=== PATIENT | female | born 1985 | race Two or more races ===

== ENCOUNTER 2021-09-04 15:30 | Inpatient (IN) | payer OTHER ==
[~2021-09-04] VITALS: Ht 152.4 cm; Wt 88.9 kg
[2021-09-10] MEDS ORDERED: ST. JOSEPH ASPI81 M2 (07:59)
== END 2021-09-12 17:11 | disposition home or self-care (01) | DRG 807 ==
LOC: LDR 09-09 19:32 → OB/GYN 09-09 19:32
PROVIDERS: ADMIT Obstetrics & Gynecology; ATTEND Obstetrics & Gynecology
PROC: 10E0XZZ Delivery of Products of Conception, External Approach (ICD-10-PCS; principal; 2021-09-09)
PROC: 0W8NXZZ Division of Female Perineum, External Approach (ICD-10-PCS; 2021-09-09)
PROC: 4A1HXFZ Monitoring of Products of Conception, Cardiac Rhythm, External Approach (ICD-10-PCS; 2021-09-09)
DX: O80 Encounter for full-term uncomplicated delivery (principal); Z37.0 Single live birth; Z3A.39 39 weeks gestation of pregnancy